=== PATIENT | female | born 1960 | race Caucasian/White ===

== ENCOUNTER 2017-06-28 09:13 | Observation (INO) | payer BC ==
[~2017-06-28 09:13] MED LIST: CEFAZOLIN 2 GM/50 ML (PMX) 50 ML IVPB
[2017-06-28] MEDS ORDERED: PROPOFOL 20 ML (11:20)
[2017-06-28] MEDS ORDERED: MEPERIDINE 100 MG INJ (11:21)
[2017-06-28] MEDS ORDERED: LIDOCAINE 2% (SDV) 5 ML INJ (11:21)
[2017-06-28] MEDS ORDERED: ONDANSETRON 4 MG INJ (11:21)
[2017-06-28] MEDS ORDERED: METOCLOPRAMIDE 10 MG INJ (11:21)
[2017-06-28] MEDS ORDERED: MIDAZOLAM 1 MG/ML 2 ML INJ IV (12:30)
[2017-06-28] MEDS ORDERED: OXYCODONE/ACETAMINOPHEN (5/325) TAB PO ×2 (12:30)
[2017-06-28] MEDS ORDERED: METOCLOPRAMIDE 10 MG INJ IV (12:30)
[2017-06-28] MEDS ORDERED: DIPHENHYDRAMINE 50 MG INJ IV (12:30)
[2017-06-28] MEDS ORDERED: HYDROmorphONE (0.2 MG/ML) 10ML SYG IV ×3 (12:30)
[2017-06-28] MEDS ORDERED: hydrALAzine 20 MG INJ IV (12:30)
[2017-06-28] MEDS ORDERED: FENTAnyl 50 MCG/ML VIAL IV ×2 (12:30)
[2017-06-28] MEDS ORDERED: EPHEDrine SULFATE 50 MG/5 ML SYG IV (12:30)
[2017-06-28] MEDS ORDERED: LABETALOL HCL 20MG INJ IV (12:30)
[2017-06-28] MEDS: ISOSULFAN BLUE 1% 5 ML INJ SC (12:39)
[2017-06-28] MEDS ORDERED: CEFAZOLIN 1 GM INJ (14:39)
[2017-06-28] MEDS ORDERED: ACETAMINOPHEN 325 MG TAB PO (15:00)
[2017-06-28] MEDS ORDERED: morphine 2 MG INJ IV (15:00)
[2017-06-28] MEDS ORDERED: ONDANSETRON 4 MG INJ IV (15:00)
[2017-06-28] MEDS: ONDANSETRON 4 MG INJ IV (16:13)
[2017-06-28] MEDS: MEPERIDINE 25 MG INJ IV (16:14)
[2017-06-28] MEDS: FENTAnyl 50 MCG/ML VIAL IV (16:14)
[2017-06-29] MEDS: HYDROCODONE/APAP (5/325) TAB PO ×2 (06:54→16:07)
== END 2017-06-29 16:45 | disposition home or self-care (01) ==
LOC: REC 09:13 → MS1 17:30
PROVIDERS: Surgery
DX: C50.911 Malignant neoplasm of unspecified site of right female breast (principal); Z17.0 Estrogen receptor positive status [ER+]
CPT/HCPCS: 19301; 82962; 88307; 88331; 99217